=== PATIENT | male | born 1970 | race Caucasian/White ===

== ENCOUNTER → 2022-07-05 | Outpatient (CLI) | payer MEDICARE, OTHER ==
--- NOTE | 2022-07-06 08:36 | CT ---
EXAMINATION TYPE: CT foot RT wo con CT DLP: 203 mGycm, Automated exposure control for dose reduction was used. DATE OF EXAM: 07/05/2022 4:32 PM COMPARISON: None CLINICAL INDICATION:Male, 52 years old with history of M86.9 OSTEOMYELITIS, UNSPECIFIED; RT foot oste omyelitis TECHNIQUE: Axial images were obtained of the right foot . Additional coronal and sagittal reformatte d images and soft tissue and bone window were obtained for review. 3-D reconstruction was created on a separate workstation. Contrast used: None Oral contrast used: None FINDINGS: Soft tissue wound noted along the plantar surface near the fifth metatarsal head. No eviden ce for organizing fluid collection to suggest abscess. The visualized cortex of the adjacent osseous structures appears intact. The remainder of the osseous structures appear intact. There is no evidenc e of fracture, subluxation, or dislocation. No focal muscular atrophy or edema is identified. No rad iopaque foreign body identified. IMPRESSION: Plantar surface wound near the fifth metatarsal head without evidence for osseous erosion. If there r emains clinical concern consider MRI foot without contrast.
== END | disposition home or self-care (01) ==
LOC: RADCTMAIN 09:21
PROVIDERS: ATTEND Internal Medicine Infectious Disease
DX: S91.331A Puncture wound without foreign body, right foot, initial encounter (principal); M86.9 Osteomyelitis, unspecified

== ENCOUNTER 2022-08-04 09:05 | Day surgery (SDC) | payer MEDICARE, OTHER ==
[~2022-08-04 09:05] MED LIST: DEXAMETHASONE SOD PHOSPHATE 4 MG/ML 1 ML VIAL IV ONE; HYDROmorphone 0.5 MG/0.5 ML SYRINGE IVP PRN; LACTATED RINGERS 1,000 ML IV SCH; LIDOCAINE 1% (10MG/ML) FOR IV START INTRADERMA PRN; MIDAZOLAM 2 MG/2 ML VIAL IV PRN; ONDANSETRON 4 MG/2 ML VIAL IVP ONE
[2022-08-04 09:33] VITALS: TEMP 97
[2022-08-04] MEDS ORDERED: fentaNYL (PF) 50 MCG/ML 2 ML AMP ONE (10:24)
[2022-08-04] MEDS ORDERED: PROPOFOL 10 MG/ML 20 ML VIAL IV ONE (10:24)
[2022-08-04] MEDS ORDERED: KETOROLAC 30 MG/ML 1 ML VIAL ONE (10:24)
[2022-08-04] MEDS ORDERED: KETAMINE 10 MG/ML 20 ML VIAL ONE (10:24)
[2022-08-04] MEDS ORDERED: MIDAZOLAM 2 MG/2 ML VIAL ONE (10:24)
[2022-08-04] MEDS ORDERED: BUPIVACAINE (PF) 0.25% 30 ML VIAL SQ ONE (10:36)
--- NOTE | 2022-08-04 11:26 | P.OP ---
Date of Procedure: 08/04/22 Preoperative Diagnosis: Metatarsalgia right foot Postoperative Diagnosis: Same Procedure(s) Performed: Fifth metatarsal head resection right foot Anesthesia: SURYA Surgeon: Abe Dc Estimated Blood Loss (ml): 1 Pathology: other (Fifth metatarsal head right foot) Condition: stable Disposition: PACU Indications for Procedure: Patient has a history of chronic ulceration on the plantar side of the first metatarsal phalangeal joint. Patient had undergone IV antibiotic therapy as well as wound care therapy. The wound had healed however his physicians felt that there could be chronic osteomyelitis. CT scans were negative. X-rays did not show any bony erosion. However the patient complained of pain in the area because the bone seemed to protrude and cause pressure. The recommendation was for fifth metatarsal head resection. Operative Findings: No bony destructive process noted in the fifth metatarsal. There was inflammatory tissue in the fifth metatarsal phalangeal joint. Description of Procedure: The patient was brought into the operative room and placed on table in supine position. Timeout was taken to confirm correct patient identifiers, correct laterality of surgery, and correct procedure. When all staff in the room in agreement with the timeout, the patient was placed under IV sedation anesthesia. A well-padded tourniquet was placed on the right ankle and then 20 mL of 0.25% Marcaine was injected as a lateral forefoot block. Then the foot was prepped and draped usual manner. The foot was exsanguinated and the tourniquet inflated to 250 mmHg. Attention directed over the lateral aspect of the foot where a linear incision was made over the fifth metatarsal phalangeal joint between the long extensor tendon and the neurovascular structures. The incision was deepened down to the saphenous tissue careful to identify, avoid, and retract any neurovascular structures and cauterize any bleeding vessels. Blunt dissection was then carried down to the the joint capsule. Joint capsule was in cised lateral to the long extensor tendon and reflected from its osseous attachments on the fifth metatarsal head. Once fifth metatarsal head was mobilized a sagittal saw was was used to resect the head. A double bubble was done both plantar lateral to prevent any protrusion. The head was then removed and visually inspected. There is no grayish discoloration or erosive processes that would indicate osteomyelitis, however the bone will be sent to pathology for evaluation. There was inflammatory tissue in the synovium of the joint and that was all debrided and removed. Then the wound is thoroughly irrigated with antibiotic saline. The capsule was closed with 2-0 Vicryl. Subcu closure done with 3-0 Monocryl. And skin closure done with 3-0 nylon. An Arthrex jumpstart dressing was placed over the incision and then a dry sterile dressings applied to the right foot. The tourniquet was released and capillary refill return to all digits on the right foot.
[2022-08-04 11:41] VITALS: BP 113/72; PULSE 71; RESP 18
== END 2022-08-04 12:03 | disposition home or self-care (01) ==
LOC: OR 09:05
PROVIDERS: ATTEND Podiatrist
DX: M89.8X7 Other specified disorders of bone, ankle and foot (principal); Z87.2 Personal history of diseases of the skin and subcutaneous tissue; M86.9 Osteomyelitis, unspecified; I25.2 Old myocardial infarction; I11.0 Hypertensive heart disease with heart failure; I50.9 Heart failure, unspecified; I25.10 Atherosclerotic heart disease of native coronary artery without angina pectoris; E78.5 Hyperlipidemia, unspecified; J44.9 Chronic obstructive pulmonary disease, unspecified; F17.210 Nicotine dependence, cigarettes, uncomplicated; Z91.010 Allergy to peanuts; Z91.013 Allergy to seafood; Z91.018 Allergy to other foods; Z79.82 Long term (current) use of aspirin; Z79.51 Long term (current) use of inhaled steroids; Z79.899 Other long term (current) drug therapy; Z95.5 Presence of coronary angioplasty implant and graft; Z98.890 Other specified postprocedural states; F10.20 Alcohol dependence, uncomplicated; Z83.3 Family history of diabetes mellitus; Z82.49 Family history of ischemic heart disease and other diseases of the circulatory system
CPT/HCPCS: 28113; 88304; 88311; J2250; J1100; J0690; J2405; J3010; J1885; J2704

== ENCOUNTER 2023-02-26 09:51 | Day surgery (SDC) | payer MEDICARE, OTHER ==
[2023-02-23 08:42] VITALS: BMI 30.3
[~2023-02-26 09:51] MED LIST changes: +ALPRAZolam 0.25 MG TAB PO PRN; +ALPRAZolam 0.5 MG TAB PO PRN; +ASPIRIN 325 MG TAB PO STA; +ATORVASTATIN 80 MG TAB PO STA; -DEXAMETHASONE SOD PHOSPHATE 4 MG/ML 1 ML VIAL IV ONE; +HEPARIN SODIUM,PORCINE (1 ML) 2,500 UNIT in SODIUM CHLORIDE 0.9% 250 ML IRRIGATION PRN; +HEPARIN SODIUM,PORCINE 10,000 UNIT in SODIUM CHLORIDE 0.9% 1,000 ML IRRIGATION PRN; -HYDROmorphone 0.5 MG/0.5 ML SYRINGE IVP PRN; -LACTATED RINGERS 1,000 ML IV SCH; -LIDOCAINE 1% (10MG/ML) FOR IV START INTRADERMA PRN; -MIDAZOLAM 2 MG/2 ML VIAL IV PRN; +NITROGLYCERIN SL TABS 0.4 MG TAB SUBLINGUAL PRN; -ONDANSETRON 4 MG/2 ML VIAL IVP ONE; +SODIUM CHLORIDE 0.9% 1,000 ML in EMPTY BAG 1 BAG IV SCH
[2023-02-26] MEDS ORDERED: SODIUM CHLORIDE 0.9% 1,000 ML IV ONE (10:06)
[2023-02-26 10:24] LABS: Basophils % (A) 0 %; Eosinophils # (A) 0.2 k/uL (0-0.7); Eosinophils % (A) 2 %; HCT 46.8 % (39.0-53.0); HGB 16.2 gm/dL (13.0-17.5); Lymphocytes # (A) 1.6 k/uL (1.0-4.8); Lymphocytes % (A) 11 %; MCH 32.2 pg (25.0-35.0); MCHC 34.6 g/dL (31.0-37.0); MCV 93.1 fL (80.0-100.0); Mean Platelet Volume 7.9; Monocytes # (A) 0.4 k/uL (0-1.0); Monocytes % (A) 3 %; Neutrophils # (A) 12.2 k/uL (1.3-7.7); Neutrophils % (A) 84 %; Platelet Count 276 k/uL (150-450); RBC 5.03 m/uL (4.30-5.90); RDW 13.3 % (11.5-15.5); WBC 14.5 k/uL (3.8-10.6)
[2023-02-26 10:31] LABS: Potassium 4.3 mmol/L (3.5-5.1)
[2023-02-26 10:33] VITALS: RESP 16; TEMP 97.9
[2023-02-26 10:33] LABS: African American GFR (CKD) >90 (>60 ml/min/1.73 sqM); Anion Gap 9 mmol/L; Blood Urea Nitrogen 16 mg/dL (9-20); Calcium 9.3 mg/dL (8.4-10.2); Carbon Dioxide 24 mmol/L (22-30); Chloride 104 mmol/L (98-107); Glucose 105 mg/dL (74-99); Non-African American GFR(CKD) >90 (>60 ml/min/1.73 sqM); Sodium 137 mmol/L (137-145)
[2023-02-26] MEDS ORDERED: LIDOCAINE 1% INJ 10MG/ML (20 ML MDV) ONE (12:10)
[2023-02-26] MEDS ORDERED: VERAPAMIL 2.5 MG/ML 2 ML AMP ONE (12:11)
[2023-02-26] MEDS ORDERED: HEPARIN SODIUM 1,000 UN/ML (10ML VL) ONE (12:11)
[2023-02-26] MEDS ORDERED: MIDAZOLAM 2 MG/2 ML VIAL IVP ONE (12:45)
[2023-02-26] MEDS ORDERED: LIDOCAINE 1% INJ 10MG/ML (5 ML VIAL-PF) SQ ONE (12:49)
[2023-02-26] MEDS ORDERED: VERAPAMIL SYRINGE (5 MG/10 ML) INTRAARTER ONE (12:49)
[2023-02-26] MEDS ORDERED: HEPARIN SODIUM 1,000 UN/ML (10ML VL) IV ONE (12:52)
[2023-02-26] MEDS ORDERED: IOPAMIDOL-370 100ML BTL INJ ONE ×2 (13:06)
[2023-02-26] MEDS ORDERED: RX INFO: IV CONTRAST WAS GIVEN 1 EACH MISC MISCELLANE PRN (13:10)
[2023-02-26] MEDS ORDERED: SODIUM CHLORIDE 0.9% 1,000 ML IV SCH (13:15)
--- NOTE | 2023-02-26 13:17 | P.PCN ---
Date of Procedure: 02/26/23 Operative Findings: CARDIAC CATHETERIZATION PERFORMING PHYSICIAN: Eliu Cervantes MD, RPVI PROCEDURE PERFORMED: 1. Selective right and left coronary angiogram 2. Left heart catheterization 3. Ultrasound-guided access of the right radial artery INDICATION: Abnormal myocardial perfusion imaging stress test concerning for high risk features. The patient is known to have CAD was prior stenting of the LAD COMPLICATION: None APPROACH: Right radial artery LEVEL OF SEDATION: Moderate with a sedation length of 15 minutes PROCEDURE DESCRIPTION: After obtaining an informed consent, the patient was brought to cardiac photographic laboratory technician. Local anesthesia was performed using lidocaine subcutaneously. The right radial artery was cannulated using Seldinger technique, the guidewire passed easily, following that we advanced a 5-Libyan sheath dilator assembly, the wire and dilator were removed and sheath was flushed. Following that, 2 mg of verapamil along with 5000 unit heparin were given. Selective right and left coronary angiogram using a 6-Libyan JR4 and JL 3.5 catheters. Following that we did left heart catheterization using 6-Libyan pigtail catheter. The procedure was completed there was no complication. SELECTIVE CORONARY ANGIOGRAM: The right coronary artery: Large caliber vessel and a dominant vessel. The RCA has mild disease in the midportion Left main: Is angiographically normal but short left main The left circumflex: Large caliber vessel and nondominant vessel. The LCx gives rises into the first obtuse marginal branch which is a large caliber vessel appears to be normal and second obtuse marginal branch which is also a large caliber vessel was mild disease only The left anterior descending artery: Is a stented from the proximal all the way to the distal portion and the LAD appeared to be occluded with in-stent occlusion HEMODYNAMICS: The LVEDP was 20 mmHg was no significant gradient across aortic valve CONCLUSION: 1. Chronic total occlusion of the LAD which seems to be in-stent occlusion extends from the proximal all the way to the distal portion. 2. Mild disease involving the left main and LCx and RCA POSTPROCEDURE MANAGEMENT: Medical treatment
[2023-02-26 15:17] VITALS: BP 115/69; PULSE 79
== END 2023-02-26 16:28 | disposition home or self-care (01) ==
LOC: CATHCVL 09:51
PROVIDERS: ATTEND Internal Medicine Interventional Cardiology
DX: I25.10 Atherosclerotic heart disease of native coronary artery without angina pectoris (principal); I25.82 Chronic total occlusion of coronary artery; I10 Essential (primary) hypertension; E78.5 Hyperlipidemia, unspecified; Z95.5 Presence of coronary angioplasty implant and graft; F17.200 Nicotine dependence, unspecified, uncomplicated; Z79.82 Long term (current) use of aspirin; Z79.899 Other long term (current) drug therapy
CPT/HCPCS: 93458; 80048; 85025; C1769; C1894; J2250; J2001; J1644; Q9967

== ENCOUNTER 2023-02-27 15:49 | Emergency (ER) | payer MEDICARE, OTHER ==
[2023-02-27] MEDS ORDERED: NITROGLYCERIN SL TABS 0.4 MG TAB SUBLINGUAL STA ×3 (16:19)
[2023-02-27] MEDS ORDERED: ASPIRIN 81 MG PO STA (16:19)
--- NOTE | 2023-02-27 16:24 | ED ---
General Adult HPI - General Chief complaint: Chest Pain Stated complaint: Chest Tightness, Heart Cath yesterday Time Seen by Provider: 02/27/23 16:05 Source: patient, RN notes reviewed, old records reviewed (Review of heart catheterization from yesterday) Mode of arrival: ambulatory Limitations: no limitations - History of Present Illness Initial comments: Patient is a pleasant 52-year-old male presenting to the emergency department with concerns of chest discomfort. Onset of symptoms was prior to arrival. Patient has burning of his chest in the sternal region. Patient did have routine stress test that was abnormal recently followed by heart catheterization just yesterday. Patient states he had no symptoms until prior to arrival. No associated dyspnea, nausea, or diaphoresis. Discomfort is mild rated 3/10. - Related Data Home Medications Medication Instructions Recorded Confirmed Albuterol Sulfate [Ventolin HFA] 1 puff INHALATION RT-DAILY PRN 07/31/22 02/27/23 Aspirin [Adult Low Dose Aspirin EC] 81 mg PO DAILY 07/31/22 02/27/23 Gabapentin [Neurontin] 400 mg PO QID 07/31/22 02/27/23 Metoprolol Succinate (ER) [Toprol 25 mg PO DAILY 07/31/22 02/27/23 XL] Cholecalciferol [Vitamin D3 (25 50 mcg PO DAILY 02/23/23 02/27/23 Mcg = 1000 Iu)] Losartan-Hctz 50-12.5 mg [Hyzaar 1 tab PO DAILY 02/23/23 02/27/23 50-12.5] Allergies Allergy/AdvReac Type Severity Reaction Status Date / Time peanut Allergy Anaphylaxis Verified 02/27/23 17:22 shellfish derived [Shellfish] Allergy Unknown Verified 02/27/23 17:22 soy Allergy Unknown Verified 02/27/23 17:22 Review of Systems ROS Statement: Those systems with pertinent positive or pertinent negative responses have been documented in the HPI. ROS Other: All systems not noted in ROS Statement are negative. Constitutional: Denies: fever Eyes: Denies: eye pain ENT: Denies: ear pain Respiratory: Denies: cough, dyspnea Cardiovascular: Reports: as per HPI, chest pain Endocrine: Denies: fatigue Gastrointestinal: Denies: abdominal pain Genitourinary: Denies: dysuria Musculoskeletal: Denies: back pain Skin: Denies: rash Neurological: Denies: weakness Past Medical History Past Medical History: Coronary Artery Disease (CAD), Heart Failure, COPD, Hyperlipidemia, Hypertension, Myocardial Infarction (ME) Additional Past Medical History / Comment(s): mi x2 , osteomylitis tx had mcfp anbbx-RESOLVED Last Myocardial Infarction Date:: 2011 History of Any Multi-Drug Resistant Organisms: MRSA Date of last positivie culture/infection: 2021 MDRO Source:: RT FOOT Past Surgical History: AICD, Back Surgery, Heart Catheterization With Stent, Hernia Repair, Orthopedic Surgery, Pacemaker Additional Past Surgical History / Comment(s): rods in back , LT KNEE SX TEEN, lft inguinal henia with mesh, COLONOSCOPY, RT FOOT SX, AICD Past Anesthesia/Blood Transfusion Reactions: No Reported Reaction Additional Past Anesthesia/Blood Transfusion Reaction / Comment(s): no blood transfusion hx Date of Last Stent Placement:: 2015 Type of Cardiac Device: AICD Device Placement Date:: 2013 Past Psychological History: No Psychological Hx Reported Smoking Status: Current every day smoker - Past Family History Sister(s) Family Medical History: Cancer General Exam Limitations: no limitations General appearance: alert, in no apparent distress Head exam: Present: normocephalic Eye exam: Present: normal appearance Neck exam: Present: normal inspection Respiratory exam: Present: normal lung sounds bilaterally. Absent: chest wall tenderness Cardiovascular Exam: Present: regular rate, normal rhythm Expanded Peripheral pulses: 2+: Radial (R), Radial (L), Posterior Tibialis (R), Posterior Tibialis (L) GI/Abdominal exam: Present: soft. Absent: tenderness Extremities exam: Present: normal inspection. Absent: pedal edema, calf tenderness Neurological exam: Present: alert Psychiatric exam: Present: normal affect, normal mood Skin exam: Present: normal color Course Vital Signs 02/27/23 02/27/23 02/27/23 15:59 16:15 17:08 Temperature 98.6 F 97.8 F Pulse Rate 77 81 78 Pulse Rate [ 79 [place] ] Respiratory 16 18 17 Rate Blood Pressure 135/88 135/89 128/96 O2 Sat by Pulse 97 97 94 L Oximetry 02/27/23 18:25 Temperature 97.7 F Pulse Rate 70 Pulse Rate [ Anvilsmith ] Respiratory 18 Rate Blood Pressure 133/88 O2 Sat by Pulse 97 Oximetry EKG Findings - EKG Results: EKG: interpreted by ERMD (Septal Q waves.), sinus rhythm, normal axis, normal ST/T Medical Decision Making - Medical Decision Making Repeat EKG interpreted by myself shows sinus rhythm with rate of 73. [place] 149. QRS 90. QT 376. QTc 402. Right axis. Septal Q waves. No acute ST change. Was pt. sent in by a medical professional or institution (, [facility], [employer], urgent care, hospital, or fpc...) When possible be specific @ -No Did you speak to anyone other than the patient for history (EMS, parent, family, police, friend...)? What history was obtained from this source @ - is present and helps provide history Did you review nursing and triage notes (agree or disagree)? Why? @ -I reviewed and agree with nursing and triage notes Were old charts reviewed (outside hosp., previous admission, EMS record, old E KG, old radiological studies, urgent care reports/EKG's, fpc records)? Report findings @ -Heart catheterization yesterday reviewed Differential Diagnosis (chest pain, altered mental status, abdominal pain women, abdominal pain men, vaginal bleeding, weakness, fever, dyspnea, syncope, headache, dizziness, GI bleed, back pain, seizure, CVA, palpatations, mental health, musculoskeletal)? @ -Differential Chest Pain: Stable Angina, Unstable Angina, STEMI, NSTEMI Aortic Dissection, Pneumothorax, Musculoskeletal, Esophageal Spasm GERD, Cholecystitis, Pancreatitis, Zoster, this is not meant to be an all-inclusive list. EKG interpreted by me (3pts min.). @ -As above X-rays interpreted by me (1pt min.). @ -Chest x-ray shows no acute process CT interpreted by me (1pt min.). @ -Report reviewed U/S interpreted by me (1pt. min.). @ -None done What testing was considered but not performed or refused? (CT, X-rays, U/S, labs)? Why? @ -None What meds were considered but not given or refused? Why? @ -None Did you discuss the management of the patient with other professionals (professionals i.e. GELA Way, WORK T[employer] DISTRIBUTOR, lab, RT, psych nurse, social work professor, community relations manager, teacher, freedom of information officer, clinical case manager)? Give summary @ -Case was discussed with cardiology, Dr. Ronquillo who does recommend repeat EKG and troponin. He states if they are negative patient can be discharged. Was smoking cessation discussed for >3mins.? @ -No Was critical care preformed (if so, how long)? @ -No Were there social determinants of health that impacted care today? How? (Homelessness, low income, unemployed, alcoholism, drug addiction, transportation, low edu. Level, literacy, decrease access to med. care, senior care, rehab)? @ -No Was there de-escalation of care discussed even if they declined (Discuss DNR or withdrawal of care, Hospice)? DNR status @ -No What co-morbidities impacted this encounter? (DM, HTN, Smoking, COPD, CAD, Cancer, CVA, ARF, Chemo, Hep., AIDS, mental health diagnosis, sleep apnea, morb id obesity)? @ -None Was patient admitted / discharged? Hospital course, mention meds given and route, prescriptions, significant lab abnormalities, going to OR and other pertinent info. @ -Patient reevaluated and symptom-free. Computed tomography scan without concerning findings. Repeat EKG and troponin negative. Patient updated on resu lts and need for close follow-up. Patient is agreeable and states he does have appointment scheduled already. Undiagnosed new problem with uncertain prognosis? @ -No Drug Therapy requiring intensive monitoring for toxicity (Heparin, Nitro, In sulin, Cardizem)? @ -No Were any procedures done? @ -No Diagnosis/symptom? @ -Chest pain Acute, or Chronic, or Acute on Chronic? @ -Acute Uncomplicated (without systemic symptoms) or Complicated (systemic symptoms)? @ -default Side effects of treatment? @ -No Exacerbation, Progression, or Severe Exacerbation? @ -No Poses a threat to life or bodily function? How? (Chest pain, USA, ME, pneumonia, PE, COPD, DKA, ARF, appy, cholecystitis, CVA, Diverticulitis, Homicidal, Suicidal, threat to staff... and all critical care pts) @ -No - Lab Data Result diagrams: 02/27/23 16:34 02/27/23 16:34 Lab Results 02/27/23 02/27/23 02/27/23 Range/Units 16:34 16:34 16:34 WBC 8.4 (3.8-10.6) k/uL RBC 4.78 (4.30-5.90) m/uL Hgb 15.2 (13.0-17.5) gm/dL Hct 44.7 (39.0-53.0) % MCV 93.5 (80.0-100.0) fL MCH 31.9 (25.0-35.0) pg MCHC 34.1 (31.0-37.0) g/dL RDW 13.4 (11.5-15.5) % Plt Count 260 (150-450) k/uL MPV 8.2 Neutrophils % 54 % Lymphocytes % 34 % Monocytes % 7 % Eosinophils % 3 % Basophils % 0 % Neutrophils # 4.6 (1.3-7.7) k/uL Lymphocytes # 2.9 (1.0-4.8) k/uL Monocytes # 0.6 (0-1.0) k/uL Eosinophils # 0.3 (0-0.7) k/uL Basophils # 0.0 (0-0.2) k/uL PT 10.5 (10.0-12.5) sec INR 0.9 (<1.2) APTT 25.0 (22.0-30.0) sec D-Dimer 0.67 H (<0.60) mg/L FEU Sodium 140 (137-145) mmol/L Potassium 4.1 (3.5-5.1) mmol/L Chloride 110 H (98-107) mmol/L Carbon Dioxide 23 (22-30) mmol/L Anion Gap 7 mmol/L BUN 19 (9-20) mg/dL Creatinine 0.84 (0.66-1.25) mg/dL Est GFR (CKD-EPI)AfAm >90 (>60 ml/min/1.73 sqM) Est GFR (CKD-EPI)NonAf >90 (>60 ml/min/1.73 sqM) Glucose 84 (74-99) mg/dL Calcium 8.9 (8.4-10.2) mg/dL Magnesium 1.9 (1.6-2.3) mg/dL Total Bilirubin 0.4 (0.2-1.3) mg/dL AST 24 (17-59) U/L ALT 24 (4-49) U/L Alkaline Phosphatase 83 (38-126) U/L Troponin I (0.000-0.034) ng/mL Total Protein 6.1 L (6.3-8.2) g/dL Albumin 3.7 (3.5-5.0) g/dL Amylase 59 (30-110) U/L Lipase 192 (23-300) U/L Serum Alcohol <10 mg/dL 02/27/23 02/27/23 Range/Units 16:34 20:31 WBC (3.8-10.6) k/uL RBC (4.30-5.90) m/uL Hgb (13.0-17.5) gm/dL Hct (39.0-53.0) % MCV (80.0-100.0) fL MCH (25.0-35.0) pg MCHC (31.0-37.0) g/dL RDW (11.5-15.5) % Plt Count (150-450) k/uL MPV Neutrophils % % Lymphocytes % % Monocytes % % Eosinophils % % Basophils % % Neutrophils # (1.3-7.7) k/uL Lymphocytes # (1.0-4.8) k/uL Monocytes # (0-1.0) k/uL Eosinophils # (0-0.7) k/uL Basophils # (0-0.2) k/uL PT (10.0-12.5) sec INR (<1.2) APTT (22.0-30.0) sec D-Dimer (<0.60) mg/L FEU Sodium (137-145) mmol/L Potassium (3.5-5.1) mmol/L Chloride (98-107) mmol/L Carbon Dioxide (22-30) mmol/L Anion Gap mmol/L BUN (9-20) mg/dL Creatinine (0.66-1.25) mg/dL Est GFR (CKD-EPI)AfAm (>60 ml/min/1.73 sqM) Est GFR (CKD-EPI)NonAf (>60 ml/min/1.73 sqM) Glucose (74-99) mg/dL Calcium (8.4-10.2) mg/dL Magnesium (1.6-2.3) mg/dL Total Bilirubin (0.2-1.3) mg/dL AST (17-59) U/L ALT (4-49) U/L Alkaline Phosphatase (38-126) U/L Troponin I <0.012 <0.012 (0.000-0.034) ng/mL Total Protein (6.3-8.2) g/dL Albumin (3.5-5.0) g/dL Amylase (30-110) U/L Lipase (23-300) U/L Serum Alcohol mg/dL Disposition Clinical Impression: Chest pain Disposition: HOME SELF-CARE Condition: Stable Instructions (If sedation given, give patient instructions): Chest Pain (ED) Additional Instructions: Please do follow-up with her solution sales senior executive as scheduled. Please follow-up to primary care physician in the next one or 2 days for recheck. Return for increased pain, difficulty breathing, worsening or changing symptoms or any other concerns. Is patient prescribed a controlled substance at d/c from ED?: No Referrals: Jair Alanis MD [Primary Care Provider] - 1-2 days Time of Disposition: 21:57
--- NOTE | 2023-02-27 16:54 | XR ---
EXAMINATION TYPE: XR chest 2V DATE OF EXAM: 02/27/2023 4:38 PM CLINICAL INDICATION:Male, 52 years old with history of Chest Pain; COMPARISON: None TECHNIQUE: XR chest 2V Frontal and lateral views of the chest. FINDINGS: Lungs/Pleura: There is no evidence of pleural effusion, focal consolidation, or pneumothorax. Pulmonary vascularity: Unremarkable. Heart/mediastinum: Cardiomediastinal silhouette is unremarkable. Single-lead cardiac conduction devic e overlying the left hemithorax with lead projecting over the right ventricle. Musculoskeletal: No acute osseous pathology. IMPRESSION: No acute cardiopulmonary disease/process.
[2023-02-27 17:02] LABS: Basophils % (A) 0 %; Eosinophils # (A) 0.3 k/uL (0-0.7); Eosinophils % (A) 3 %; HCT 44.7 % (39.0-53.0); HGB 15.2 gm/dL (13.0-17.5); Lymphocytes # (A) 2.9 k/uL (1.0-4.8); Lymphocytes % (A) 34 %; MCH 31.9 pg (25.0-35.0); MCHC 34.1 g/dL (31.0-37.0); MCV 93.5 fL (80.0-100.0); Mean Platelet Volume 8.2; Monocytes # (A) 0.6 k/uL (0-1.0); Monocytes % (A) 7 %; Neutrophils # (A) 4.6 k/uL (1.3-7.7); Neutrophils % (A) 54 %; Platelet Count 260 k/uL (150-450); RBC 4.78 m/uL (4.30-5.90); RDW 13.4 % (11.5-15.5); WBC 8.4 k/uL (3.8-10.6)
[2023-02-27 17:11] LABS: ALT 24 U/L (4-49); AST 24 U/L (17-59); African American GFR (CKD) >90 (>60 ml/min/1.73 sqM); Albumin 3.7 g/dL (3.5-5.0); Alcohol <10 mg/dL; Alkaline Phosphatase 83 U/L (38-126); Amylase 59 U/L (30-110); Anion Gap 7 mmol/L; Blood Urea Nitrogen 19 mg/dL (9-20); Calcium 8.9 mg/dL (8.4-10.2); Carbon Dioxide 23 mmol/L (22-30); Chloride 110 mmol/L (98-107); Glucose 84 mg/dL (74-99); Lipase 192 U/L (23-300); Magnesium 1.9 mg/dL (1.6-2.3); Non-African American GFR(CKD) >90 (>60 ml/min/1.73 sqM); Potassium 4.1 mmol/L (3.5-5.1); Sodium 140 mmol/L (137-145); Total Bilirubin 0.4 mg/dL (0.2-1.3); Total Protein 6.1 g/dL (6.3-8.2)
[2023-02-27 17:13] LABS: INR 0.9 (<1.2); Prothrombin Time 10.5 sec (10.0-12.5)
[2023-02-27] MEDS ORDERED: FAMOTIDINE 20 MG/2 ML VIAL IV STA (18:09)
[2023-02-27] MEDS ORDERED: methylPREDNISolone SOD SUCCI 125 MG/2 ML VIAL IV STA (18:09)
[2023-02-27] MEDS ORDERED: diphenhydrAMINE 50 MG/ML 1 ML VIAL IVP STA (18:09)
[2023-02-27 18:33] VITALS: RESP 18
--- NOTE | 2023-02-27 19:23 | CT ---
EXAMINATION TYPE: CT angio chest CT DLP: 1443.5 mGycm, Automated exposure control for dose reduction was used. DATE OF EXAM: 02/27/2023 7:10 PM COMPARISON: Chest radiograph same day CLINICAL INDICATION:Male, 52 years old with history of cp; C/O CP, hx 2 [place], had heart cath yesterday with blockage. c/o pain to chest radiating to neck. TECHNIQUE/CONTRAST: CTA scan of the thorax is performed with IV Contrast, patient injected with 100 ml mL of Isovue 370, MIP images are created and reviewed these are created on a separate workstation.. FINDINGS: Lungs/Pleura: No evidence of focal consolidation, pleural effusion or pneumothorax. Airway: Large airways are patent. Heart: Heart is within normal limits for size. Suspected stent grafts of the left anterior descending coronary artery. Vasculature: No evidence of aortic aneurysm. 2 vessel aortic arch. No evidence for vascular occlusion . Mediastinum: No gross evidence of adenopathy. Musculoskeletal: No acute osseous abnormalities Soft Tissues: Left chest wall cardiac conduction device with leads remain in the right ventricle. Lower neck: No significant findings. No acute process involving the left neck. Upper Abdomen: Atrophic left kidney. IMPRESSION: 1. No evidence for acute thoracic process.. 2. Postsurgical changes to the coronary arteries with suspected left anterior descending stent grafts . Evaluation limited due to motion and phasic contrast. 3. Atrophic left kidney.
[2023-02-27 22:26] VITALS: BP 134/91; PULSE 80; TEMP 98
== END 2023-02-27 22:07 | disposition home or self-care (01) ==
LOC: EC 15:49
DX: R07.89 Other chest pain (principal); N26.1 Atrophy of kidney (terminal); I25.10 Atherosclerotic heart disease of native coronary artery without angina pectoris; I11.0 Hypertensive heart disease with heart failure; I50.9 Heart failure, unspecified; J44.9 Chronic obstructive pulmonary disease, unspecified; I25.2 Old myocardial infarction; F17.200 Nicotine dependence, unspecified, uncomplicated; Z79.82 Long term (current) use of aspirin; Z79.899 Other long term (current) drug therapy; Z91.010 Allergy to peanuts; Z91.013 Allergy to seafood; Z91.018 Allergy to other foods
CPT/HCPCS: 36415; 93005; 85379; 80053; 82150; 83690; 83735; 84484; 85025; 85610; 85730; 71046; 71275; 99285; 96374; 96375 ×2; G0480; J1200; J2930; J3490; Q9967; 80320

== ENCOUNTER → 2024-04-25 | Outpatient (CLI) | payer MEDICARE ==
--- NOTE | 2024-04-25 13:26 | CT ---
EXAMINATION TYPE: CT hip LT wo con CT DLP: 644.2 mGycm, Automated exposure control for dose reduction was used. 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 Additional cor onal and sagittal reformatted images and soft tissue and bone window were obtained for review. 3-D re construction was created on a separate workstation. FINDINGS: There is no evidence of fracture, subluxation, or dislocation. There is serpiginous sclero tic appearance of the femoral head with approximately 1 mm of subchondral collapse (series 6, image 3 6). No significant soft tissue swelling or joint effusion is identified. No focal muscular atrophy or edema is identified. No radiopaque foreign body identified. IMPRESSION: Left femoral head avascular necrosis with 1 mm subchondral collapse. [facility], , 04/25/2024 1:24 PM
== END | disposition home or self-care (01) ==
LOC: RADCTMAIN 11:52
PROVIDERS: ATTEND Orthopaedic Surgery
DX: M87.052 Idiopathic aseptic necrosis of left femur (principal); M87.9 Osteonecrosis, unspecified

== ENCOUNTER → 2024-05-23 | Outpatient (CLI) | payer MEDICARE ==
[2024-05-23 08:16] LABS: Partial Thromboplastin Time 24.5 sec (22.0-30.0); Prothrombin Time 11.2 sec (10.0-12.5)
[2024-05-23 11:02] LABS: ALT 35 U/L (10-49); AST 24 U/L (14-35); Albumin 4.3 g/dL (3.8-4.9); Albumin/Globulin Ratio 1.79 Ratio (1.60-3.17); Alkaline Phosphatase 98 U/L (41-126); Blood Urea Nitrogen 18.4 mg/dL (9.0-27.0); Calcium 9.3 mg/dL (8.7-10.3); Carbon Dioxide 28.3 mmol/L (21.6-31.8); Chloride 105 mmol/L (96-109); Globulin 2.4 g/dL (1.6-3.3); Glucose 97 mg/dL (70-110); Potassium 4.7 mmol/L (3.5-5.5); Sodium 143 mmol/L (135-145); Total Bilirubin 0.5 mg/dL (0.3-1.2); Total Protein 6.7 g/dL (6.2-8.2)
[2024-05-23 13:43] LABS: HCT 47.3 % (39.6-50.0); MCH 31.6 pg (27.0-32.0); MCHC 33.8 g/dL (32.0-37.0); MCV 93.3 FL (80.0-97.0); Mean Platelet Volume 10.8 FL (9.5-12.2); NRBC Per 100 WBC 0 X 10*3/uL (0.00-0.01); Platelet Count 213 X 10*3/uL (140-440); RBC 5.07 X 10*6/uL (4.40-5.60); RDW 13.1 % (11.5-14.5); WBC 6.34 X 10*3/uL (4.50-10.00)
== END | disposition home or self-care (01) ==
LOC: LABPAT 07:10
PROVIDERS: ATTEND Orthopaedic Surgery
DX: Z01.812 Encounter for preprocedural laboratory examination (principal); M16.12 Unilateral primary osteoarthritis, left hip; Z22.322 Carrier or suspected carrier of Methicillin resistant Staphylococcus aureus
CPT/HCPCS: 80053; 85027; 85610; 85730; 86850; 86900; 86901; 87070; 93005

== ENCOUNTER → 2024-05-23 | Outpatient (CLI) | payer MEDICARE ==
[2024-05-23 11:01] LABS: ALT 35 U/L (10-49); AST 25 U/L (14-35); Chol/HDL Ratio 4.07 Ratio; LDL Cholesterol,Calculated 65.5 mg/dL (0.0-131.0)
== END | disposition home or self-care (01) ==
LOC: LABWHC1 07:15
PROVIDERS: ATTEND Internal Medicine Interventional Cardiology
DX: E78.2 Mixed hyperlipidemia (principal)
CPT/HCPCS: 36415; 80061; 84450; 84460

== ENCOUNTER 2024-06-03 05:34 | Day surgery (SDC) | payer MEDICARE ==
[~2024-06-03 05:34] MED LIST changes: -ALPRAZolam 0.25 MG TAB PO PRN; -ALPRAZolam 0.5 MG TAB PO PRN; -ASPIRIN 325 MG TAB PO STA; -ATORVASTATIN 80 MG TAB PO STA; -HEPARIN SODIUM,PORCINE (1 ML) 2,500 UNIT in SODIUM CHLORIDE 0.9% 250 ML IRRIGATION PRN; -HEPARIN SODIUM,PORCINE 10,000 UNIT in SODIUM CHLORIDE 0.9% 1,000 ML IRRIGATION PRN; -NITROGLYCERIN SL TABS 0.4 MG TAB SUBLINGUAL PRN; -SODIUM CHLORIDE 0.9% 1,000 ML in EMPTY BAG 1 BAG IV SCH; +TRANEXAMIC 1,000 MG/100ML-NACL 1,000 MG in SALINE 1 100ML.BAG IVPB PRN
[2024-06-03] MEDS ORDERED: LIDOCAINE 1% (10MG/ML) FOR IV START INTRADERMA PRN (05:46)
[2024-06-03] MEDS: IV FLUID CONTINUATION 1,000 ML IV ONE (05:50)
[2024-06-03] MEDS: ONDANSETRON 4 MG/2 ML VIAL IVP ONE (06:25)
[2024-06-03] MEDS: GABAPENTIN 300 MG CAP PO PRN (06:25)
[2024-06-03] MEDS: ACETAMINOPHEN TAB 500 MG TAB PO PRN (06:25)
[2024-06-03] MEDS: MELOXICAM 7.5 MG TAB PO PRN (06:25)
[2024-06-03] MEDS: DEXAMETHASONE SOD PHOSPHATE 4 MG/ML 1 ML VIAL IVP STA (06:30)
[2024-06-03] MEDS: MIDAZOLAM 2 MG/2 ML VIAL IV ONE (06:44)
[2024-06-03] MEDS: fentaNYL (PF) 50 MCG/ML 2 ML AMP IVP PRN (06:44)
[2024-06-03] MEDS ORDERED: PROPOFOL 10 MG/ML 20 ML VIAL IV ONE (07:00)
[2024-06-03] MEDS ORDERED: ePHEDrine 50 MG/ML 1 ML VIAL ONE (07:00)
[2024-06-03] MEDS ORDERED: MIDAZOLAM 2 MG/2 ML VIAL ONE (07:00)
[2024-06-03] MEDS ORDERED: ROPIVACAINE 5 MG/ML 30 ML VIAL ONE (07:00)
[2024-06-03] MEDS ORDERED: HYDROmorphone 0.5 MG/0.5 ML SYRINGE IVP PRN ×3 (07:00→08:38)
[2024-06-03] MEDS ORDERED: DEXAMETHASONE SOD PHOSPHATE 4 MG/ML 1 ML VIAL ONE (07:00)
[2024-06-03] MEDS ORDERED: TRANEXAMIC 1,000 MG/100ML-NACL PREMIX BAG ONE (07:00)
[2024-06-03] MEDS ORDERED: LIDOCAINE 1% INJ 10MG/ML (20 ML MDV) ONE (07:00)
[2024-06-03] MEDS ORDERED: fentaNYL (PF) 50 MCG/ML 2 ML AMP ONE (07:00)
[2024-06-03] MEDS: ceFAZolin 1,000 MG in SODIUM CHLORIDE 0.9% 1,000 ML IRRIGATION ONE (07:00)
[2024-06-03] MEDS: ROPIVACAINE 5 MG/ML 30 ML VIAL MISCELLANE ONE ×2 (07:01→08:05)
--- NOTE | 2024-06-03 08:11 | P.OP ---
Date of Procedure: 06/03/24 Preoperative Diagnosis: Avascular necrosis of the left hip with femoral head collapse Postoperative Diagnosis: Avascular necrosis of the left hip with femoral head collapse Procedure(s) Performed: Left total hip arthroplasty with a direct anterior approach Implants: [employer]hew Polarstem standard size 3 with a collar [employer]hew R3, 3 hole hemispherical acetabular shell, 54 mm [employer]hew Reflection 6.5 mm cancellus screws, 20 mm 2 [employer] R3, XLPE 20 acetabular liner [employer]hew Oxinium femoral head 36 mm, -3 All components were press-fit. The articulation is Oxinium on polyethylene. Anesthesia: spinal Surgeon: Rafa Soto Utility Person #1: Noreen Vigil Estimated Blood Loss (ml): 500 Pathology: none sent Condition: stable Disposition: PACU Indications for Procedure: After failure of conservative treatment we discussed the surgical and nonsurgical treatment options at length. Patient wishes to proceed with a total hip arthroplasty with a direct anterior approach. Complications specific to this procedure were discussed at length, including but not limited to infection, leg length discrepancy, dislocation, nerve injury, and fracture. Covid-19 was also discussed at length with the patient, and they are aware of the current policies and procedures. The patient was given the option of delaying surgery, but they elect to proceed knowing these risks. Patient is aware of all these complications and informed consent was obtained Operative Findings: The operative findings are consistent with avascular necrosis of the left hip with collapse of the femoral head Description of Procedure: The patient was seen and evaluated in the preoperative area and the consent was reviewed. The operative site was marked with a skin marker. The patient verified the procedure and operative site. A TIMO block was placed by anesthesia in the preoperative area. The patient was then brought to the operating room and given preoperative antibiotics intravenously. 1 g of Tranexamic acid was also given intravenously. A spinal anesthetic was administered by the anesthesia department. The patient was then placed on the [place] table with the bony prominences well-padded. The hip area was then prepped with a ChloraPrep solution and draped in the usual sterile fashion. A universal timeout was then performed, which confirmed the patient's name, surgical site, ALLERGIES, and procedure being performed on the consent. Next the incision site was located at 1 cm distal and 4 cm lateral to the anterior superior iliac spine. The skin and subcutaneous tissues were sharply incised. Incision was carefully dissected down to the fascia overlying the tensor fascia luis manuel muscle. This fascia was then incised in line with the muscle fibers. Care was taken to stay laterally in order to avoid injuring the lateral femoral cutaneous nerve. Next, using blunt finger dissection, the tensor fascia luis manuel muscle was dissected off its investing fascia. The muscle was then carefully retracted laterally with a cobra retractor over the lateral neck of the femur. Next, the circumflex vessels were identified and cauterized using the Aquamantis device. The anterior hip capsule was then exposed. The capsule was then opened and an inverted T fashion. The retractors were then placed intracapsularly. The retractors were maintained intracapsular throughout the procedure. The proximal femur was then visualized. Fluoroscopic x-rays were then taken in order to evaluate the preoperative leg lengths. A small amount of traction was placed on the leg. The femoral neck was then osteotomized at the appropriate level above the lesser trochanter. A small wedge of bone was then removed from the remaining femoral head. Next, using a corkscrew the femoral head was removed from the acetabulum. On gross visual inspection, the femoral head had significant changes secondary to avascular necrosis with collapse of the femoral head. The femoral head was then measured. Attention was then turned to the acetabulum. The acetabulum was exposed and any remaining labrum was excised. Sequential reaming of the acetabulum was performed using fluoroscopic guidance until there was a good bed of bleeding cancellus bone. When the appropriate size was reached, a trial was then placed. The position and fit of the trial was checked with fluoroscopy. The trial was then removed. Then, using fluoroscopic guidance, the final implant was impacted at 20 of anteversion and 40 of abduction, and fully seated in the acetabulum. 2 screws were then placed in the acetabulum. Again fluoroscopy was used to check position of the screws. Next, the liner was then impacted, with a 20 elevated liner located in the anterior superior quadrant. Component locking was confirmed. Attention was then directed to the femur. With the aid of the [place] table, the femur was externally rotated to approximately 130, extended, and adducted under the opposite leg. A side hook was then placed under the proximal femur, and the side hook elevator was used to elevate the proximal femur while releasing the capsule. Retractors were then placed. A capsular release was performed, as well as a release of the conjoined tendon, which afforded excellent visualization of the proximal femur. Next, a box osteotome was used to lateralize the proximal femur. A brim ironer hand was then used to locate the femoral canal. Sequential broaching was then performed with appropriate size which afforded excellent fixation in the proximal femur. A trial was then pl aced with appropriate head and neck, and the hip was gently reduced with the aid of the [place] table. Fluoroscopy was then used to check position of the components, as well as to evaluate the leg lengths and offset. The leg lengths and offset were measured as closely as possible to ensure stability of the hip. The hip was then gently dislocated and the trials were then removed. Final implants were then impacted and the hip was again reduced. Final fluoroscopic x-rays confirmed that the components were in anatomic position. The leg lengths and offset were measured and were found to coincide with the trial measurements. The hip was also taken through range of motion, and found to be stable. The hip was then copiously irrigated with antibiotic solution with pulsatile lavage. The hip was then irrigated with Irrisept solution. The soft tissues were then injected with a ropivacaine solution. A second dose of 1 g of Tranexamic acid was also given intravenously. The fascia was then closed with 2-0 strata fix suture. The subcutaneous tissue was closed with 3-0 Vicryl. The subcuticular tissue was closed with 3-0 moncryl suture. The skin was then closed with Exofin skin glue. After the glue and dried, and Optifoam silver impregnated dressing was applied. The patient was then transferred to the recovery room in stable condition. The diploma dental assistant GELA Garcia was required due to the complexity of surgery, and the need for skilled assistant clinical nurse manager for positioning, draping, exposure, retraction, and closure of the wound.
--- NOTE | 2024-06-03 08:33 | FL ---
EXAMINATION TYPE: FL guidance operating room, XR Hip Limited LT DATE OF EXAM: 06/03/2024 FLUOROSCOPY Left Hip-Ant 50sec fluoro time 3.[address] Soto 3 images are submitted. [facility], , 06/03/2024 8:30 AM
[2024-06-03] MEDS ORDERED: NALOXONE 0.4 MG/ML 1 ML VIAL IV PRN (08:38)
[2024-06-03] MEDS ORDERED: MAGNESIUM HYDROXIDE 2,400 MG/30 ML CUP PO PRN (08:38)
[2024-06-03] MEDS ORDERED: ONDANSETRON 4 MG/2 ML VIAL IVP PRN (08:38)
[2024-06-03] MEDS ORDERED: HYDROmorphone 1 MG/ML 1 ML SYRINGE IVP PRN (08:38)
[2024-06-03] MEDS ORDERED: HYDROcodone/APAP 7.5-325MG 1 EACH TAB PO PRN (08:41)
--- NOTE | 2024-06-03 09:00 | P.ANPRN ---
Procedure Note - Anesthesia - Nerve Block Performed Left Den Single Time Out Performed: Yes (0643) Date of Procedure: 06/03/24 Procedure Start Time: 06:44 Procedure Stop Time: 06:48 Location of Patient: PreOp Indication: Acute Post-Operative Pain, Requested by Surgeon Specifically requested for management of pain by DrBenton: Rafa Soto Sedation Type: Sedate with meaningful contact maintained Preparation: Sterile Prep Position: Supine Catheter: None Needle Types: Pajunk Needle Gauge: 21 Ultrasound used to visualize needle placement: Yes Ultrasound used to observe medication spread: Yes Injectate: 0.5% Ropivacaine (see comment for volume) (30cc+decadron 4mg) Blood Aspirated: No Pain Paresthesia on Injection Noted: No Resistance on Injection: Normal Image Stored and Saved: Yes Events: Uneventful and Well Tolerated
--- NOTE | 2024-06-03 09:26 | XR ---
EXAMINATION TYPE: XR Hip Limited AP LT DATE OF EXAM: 06/03/2024 9:02 AM COMPARISON: None CLINICAL INDICATION: Male, 54 years old with history of Status post hip surgery, assess surgical dirk nmeduard; PHH, pain TECHNIQUE: XR Hip Limited LT; Frontal view FINDINGS: Image shows placement of left opercular plasty. Both acetabular cup and femoral stem components of th e prosthesis are well seated without periprosthetic fracture. Alignment grossly anatomic. Soft tissue air related to recent operation. IMPRESSION: Uncomplicated postoperative appearance left total hip arthroplasty. [facility], Workstation: [facility], 06/03/2024 9:23 AM
[2024-06-03] MEDS: LACTATED RINGERS 1,000 ML IV SCH (12:06)
[2024-06-03] MEDS: HYDROcodone/APAP 7.5-325MG 1 EACH TAB PO PRN (12:12)
[2024-06-03] MEDS: SODIUM CHLORIDE 0.9% 1,000 ML IV SCH (12:15)
[2024-06-03] MEDS ORDERED: ZINC SULFATE 220 MG CAP PO PRN (14:35)
[2024-06-03] MEDS ORDERED: IPRATROPIUM-ALBUTEROL 3 ML NEB INHALATION PRN (16:26)
--- NOTE | 2024-06-03 16:38 | P.CONS ---
History of Present Illness - Reason for Consult Consult date: 06/03/24 Medical Management Requesting physician: Rafa Soto - History of Present Illness History of Presenting Illness: Patient is a pleasant 54-year-old male with a past medical history of CAD status post stenting and AICD placement, systolic heart failure, hypertension, hyperlipidemia, COPD and avascular necrosis. Patient currently admitted under orthopedic surgery team status post left total hip arthroplasty. Surgical procedure was completed by Dr. Soto secondary to avascular necrosis of left hip with femoral head collapse. We were consulted for medical management throughout hospitalization. Patient seen and fully evaluated in room 471. He reports currently experiencing mild postoperative pain, but states numbness is not quite weird off yet since his surgery to his left thigh and groin region. Patient is tolerating oral intake and denies having any postoperative nausea or vomiting. He has not yet urinated since completion of surgical procedure, but just arrived to room 471 just a short while ago. He denies having any headache, lightheadedness, dizziness, chest pain, palpitations, shortness of breath, or any other complaints at this time. Review of systems: Pertinent positives and negatives as discussed in HPI, a complete review of systems was performed and all other systems are negative. Physical exam: Vital signs reviewed and stable. General: Nontoxic, no distress and appears stated age. Derm: Skin warm and dry, normal coloration for ethnicity. Head: Atraumatic, normocephalic and symmetric. Eyes: EOM's intact, no lid lag, and anicteric sclera Mouth: no lip lesions, mucus membranes moist Cardiovascular: regular rate and rhythm with normal S1S2, no murmur, positive posterior tibial pulses bilaterally, and cap refill < 2 seconds. Lungs: Respirations even, regular, and unlabored on room air. Lungs CTA bilaterally, no rhonchi, no rales, no wheezing, and no accessory muscle usage. Abdominal: soft, nontender to palpation, no guarding, no appreciable organomegaly Ext: ROM intact. No gross muscle atrophy, no edema, no contractures Neuro: Speech clear, face symmetrical and CN II-XII grossly intact with no noted focal neuro deficits Psych: Alert and oriented to person, place, time, and situation. Appropriate and pleasant affect. Assessment and Plan of Care: Avascular necrosis of left hip with femoral head collapse Status post left total hip arthroplasty -Management per primary admitting orthopedic surgery team including DVT prophylaxis, pain management, wound/dressing management, weightbearing, and PT/OT. -Patient currently on DVT prophylaxis with aspirin 325 mg twice daily along with RJ johnston and SCDs.. -Continue gabapentin 400 mg 3 times daily. History of CAD status post stenting Chronic Systolic heart failure, not in acute exacerbation History of AICD placement Hypertension Hyperlipidemia -Order placed for telemetry monitoring throughout postoperative period. -Continue daily medication regimen with atorvastatin 80 mg daily, losartanhydrochlorothiazide 50-12.5 mg daily, and metoprolol succinate 25 mg daily. COPD, not in acute exacerbation -Continue Trelegy Ellipta 1 puff daily. -In substitute of home Ventolin inhaler, patient placed on DuoNebs 3 times daily and as needed for wheezing/shortness of breath. -Encourage use of incentive spirometry 10-15 times hourly while awake. Data reviewed: -Vital signs reviewed. Blood pressure 120/73, heart rate 86, respiratory rate 16, temp 98.0 F, and SpO2 of 95% on room air. -Reviewed preoperative labs completed 05/23/2024. CBC showing WBC count of 6.34, hemoglobin of 16.0, platelet count of 213. BMP was unremarkable with sodium 143, potassium 4.7, chloride 105, bicarb 28.3, anion gap of 9.70, BUN 18.4, creatinine of 1.0, and GFR greater than 90. -Reviewed operative report, estimated blood loss was 500 cc. Thank you for allowing us to participate in the care of this pleasant patient. Do not hesitate to contact us with questions. Someone can be reached from the [facility] hospitalist group all hours of the day at [phone] or via [employer]. Patient was seen independently by Nurse Practitioner. This document was prepared using [employer] dictation software. Please allow for errors in director of training while rare they do occur. Lior Ruelas NP rendered care for this patient independently, reviewed the findings and plan as documented in the note above and agree with plan. I did not physically speak with or examine the patient on this date. 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 Last Myocardial Infarction Date:: 2011 History of Any Multi-Drug Resistant Organisms: MRSA Year Discovered:: 2021 MDRO Source:: RT FOOT Past Surgical History: AICD, Back Surgery, Heart Catheterization With Stent, Hernia Repair, Orthopedic Surgery, Pacemaker Additional Past Surgical History / Comment(s): rods in back , LT KNEE SX TEEN, lft inguinal henia with mesh, COLONOSCOPY, RT FOOT SX, AICD Past Anesthesia/Blood Transfusion Reactions: No Reported Reaction Additional Past Anesthesia/Blood Transfusion Reaction / Comm: no blood transfusion hx Date of Last Stent Placement:: 2015 Type of Cardiac Device: AICD Device Placement Date:: 2013 Past Psychological History: No Psychological Hx Reported Smoking Status: Former smoker Past Alcohol Use History: Occasional Additional Past Alcohol Use History / Comment(s): Quit April 2024 Past Drug Use History: None Reported - Past Family History Sister(s) Family Medical History: Cancer Medications and Allergies Home Medications Medication Instructions Recorded Confirmed Type Albuterol Sulfate [Ventolin HFA] 1 - 2 puff INHALATION Q6H PRN 07/31/22 05/27/24 History Aspirin [Adult Low Dose Aspirin EC] 81 mg PO DAILY 07/31/22 05/27/24 History Gabapentin [Neurontin] 400 mg PO TID 07/31/22 05/27/24 History Metoprolol Succinate (ER) [Toprol 25 mg PO DAILY 07/31/22 05/27/24 History XL] Losartan-Hctz 50-12.5 mg [Hyzaar 1 tab PO DAILY 02/23/23 05/27/24 History 50-12.5] Amoxicillin/Potassium Clav 1 tab PO BID 05/27/24 05/27/24 History [Amox-Clav 875-125 mg Tablet] Ascorbic Acid [Vitamin C] 1,000 mg PO DAILY 05/27/24 05/27/24 History Atorvastatin [Lipitor] 80 mg PO DAILY 05/27/24 05/27/24 History Fluticasone/Umeclidin/Vilanter 1 inhalation INHALATION DAILY 05/27/24 05/27/24 History [Trelegy Ellipta 100-62.5-25] Ubidecarenone [Co Q-10] 400 mg PO DAILY 05/27/24 05/27/24 History Zinc Gluconate [Zinc] 200 mg PO DAILY PRN 05/27/24 05/27/24 History Aspirin 325 mg PO BID #60 tab 06/03/24 Rx HYDROcodone/APAP 7.5-325MG [[place] 1 - 2 tab PO Q6H PRN #32 tab 06/03/24 Rx 7.5-325] Sennosides [Senokot] 2 tab PO DAILY PRN #60 tablet 06/03/24 Rx Allergies Allergy/AdvReac Type Severity Reaction Status Date / Time peanut Allergy Anaphylaxis Verified 06/03/24 05:52 shellfish derived [Shellfish] Allergy Unknown Verified 06/03/24 05:52 soy Allergy Unknown Verified 06/03/24 05:52 Physical Exam Vitals: Vital Signs Temp Pulse Resp BP Pulse Ox 06/03/24 12:06 98 F 86 16 120/73 95 06/03/24 12:00 86 16 06/03/24 11:00 76 16 106/63 97 06/03/24 10:30 77 16 110/83 97 06/03/24 10:00 81 16 109/63 97 06/03/24 09:30 78 16 102/58 97 06/03/24 09:15 84 16 95/55 97 06/03/24 09:00 79 16 102/57 95 06/03/24 08:45 86 16 108/64 95 06/03/24 08:32 97.2 F L 97 16 93/55 95 06/03/24 06:56 72 16 107/68 97 06/03/24 05:59 97.8 F 81 16 126/70 97 Intake and Output 06/02/24 06/03/24 06/03/24 22:59 06:59 14:59 Intake Total 551 Output Total 500 Balance 51 Intake: IV 551 Output: Estimated Blood Loss 500 Other: Voiding Method Urinal Weight 106.1 kg 106.1 kg
[2024-06-03] MEDS: GABAPENTIN 400 MG CAP PO SCH (16:44)
[2024-06-03] MEDS: GABAPENTIN 400 MG CAP PO STA (18:00)
[2024-06-03] MEDS: ASPIRIN 325 MG TAB PO SCH (20:51)
[2024-06-03] MEDS: SYMBICORT 160-4.5 MCG INHALER INHALATION SCH (21:01)
[2024-06-03] MEDS: IPRATROPIUM-ALBUTEROL 3 ML NEB INHALATION SCH (21:01)
[2024-06-03] MEDS: SENNOSIDES-DOCUSATE SODIUM 1 EACH TAB PO SCH (21:54)
[2024-06-04 01:28] VITALS: RESP 15
[2024-06-04 07:52] VITALS: BP 137/79; PULSE 89; TEMP 98
[2024-06-04 08:42] LABS: Basophils # (A) 0.04 X 10*3/uL (0.00-0.10); Basophils % (A) 0.2 %; Eosinophils # (A) 0.01 X 10*3/uL (0.04-0.35); Eosinophils % (A) 0 %; HCT 35.3 % (39.6-50.0); HGB 11.9 g/dL (13.0-17.0); Lymphocytes # (A) 1.28 X 10*3/uL (0.90-5.00); Lymphocytes % (A) 5.9 %; MCH 31.2 pg (27.0-32.0); MCHC 33.7 g/dL (32.0-37.0); MCV 92.4 FL (80.0-97.0); Mean Platelet Volume 10.6 FL (9.5-12.2); Monocytes # (A) 1.22 X 10*3/uL (0.20-1.00); Monocytes % (A) 5.6 %; NRBC Per 100 WBC 0 X 10*3/uL (0.00-0.01); Neutrophils # (A) 19.11 X 10*3/uL (1.80-7.70); Neutrophils % (A) 87.3 %; Platelet Count 287 X 10*3/uL (140-440); RBC 3.82 X 10*6/uL (4.40-5.60); RDW 12.9 % (11.5-14.5); WBC 21.87 X 10*3/uL (4.50-10.00)
[2024-06-04 08:53] LABS: Blood Urea Nitrogen 22.2 mg/dL (9.0-27.0); Glucose 148 mg/dL (70-110); Magnesium 1.7 mg/dL (1.5-2.4)
[2024-06-04 08:54] LABS: Calcium 8.9 mg/dL (8.7-10.3); Carbon Dioxide 24.2 mmol/L (21.6-31.8); Chloride 105 mmol/L (96-109); Potassium 4.8 mmol/L (3.5-5.5); Sodium 140 mmol/L (135-145)
[2024-06-04] MEDS: TIOTROPIUM 2.5 MCG INHALER INHALATION SCH (09:10)
[2024-06-04] MEDS: GABAPENTIN 400 MG CAP PO SCH (09:33)
[2024-06-04] MEDS: METOPROLOL SUCCINATE (ER) 25 MG TAB.ER.24H PO SCH (09:33)
[2024-06-04] MEDS: LOSARTAN-HCTZ 50-12.5 MG 1 EACH TAB PO SCH (09:33)
[2024-06-04] MEDS: ATORVASTATIN 80 MG TAB PO SCH (09:33)
--- NOTE | 2024-06-04 10:32 | P.DS ---
Providers Expected date of discharge: 06/04/24 Attending physician: Rafa Soto Consults: 06/03/24 08:38 Consult Physician Routine Consulting Provider: Chuy Murphy Consult Reason/Comments: medical management Do you want consulting provider notified?: Yes Primary care physician: Stated None - Discharge Diagnosis(es) (1) S/P total hip arthroplasty Current Visit: Yes Status: Acute (2) Avascular necrosis of bone of left hip Current Visit: Yes Status: Acute Hospital Course: This is a 54-year-old male with known history of avascular necrosis of the left hip with femoral head collapse. The patient presented for evaluation as an outp atient. After discussion and consideration patient elects to proceed with total hip arthroplasty. The patient is seen preoperatively by Dr. Soto and medically cleared for surgery by their primary care physician. Patient is admitted to [facility] on 06/03/2024 for total hip arthroplasty. The procedure is performed without complication or sequelae. The patient is doing well postoperatively. Labs and vital signs are stable on day of discharge. On day of discharge patient's hip incision is healing well. There is minimal erythema. There is no drainage noted at this time. There is minimal soft tissue swelling to the hip and thigh. Patient has full foot and ankle motion without difficulty or pain. Calf is soft and nontender to palpation. Neurovascular status to the left lower extremity is intact. Patient is discharged home in good condition. Please see med rec for accurate list of home medications. Plan - Discharge Summary Discharge Rx Participant: Yes New Discharge Prescriptions: New HYDROcodone/APAP 7.5-325MG [[place] 7.5-325] 1 - 2 tab PO Q6H PRN #32 tab PRN Reason: Pain Aspirin 325 mg PO BID #60 tab Sennosides [Senokot] 2 tab PO DAILY PRN #60 tablet PRN Reason: Constipation Continue Albuterol Sulfate [Ventolin HFA] 1 - 2 puff INHALATION Q6H PRN PRN Reason: Wheezing Metoprolol Succinate (ER) [Toprol XL] 25 mg PO DAILY Gabapentin [Neurontin] 400 mg PO TID Losartan-Hctz 50-12.5 mg [Hyzaar 50-12.5] 1 tab PO DAILY Ubidecarenone [Co Q-10] 400 mg PO DAILY Zinc Gluconate [Zinc] 200 mg PO DAILY PRN PRN Reason: Cold Symptoms Fluticasone/Umeclidin/Vilanter [Trelegy Ellipta 100-62.5-25] 1 inhalation INHALATION DAILY Ascorbic Acid [Vitamin C] 1,000 mg PO DAILY Atorvastatin [Lipitor] 80 mg PO DAILY No Action Amoxicillin/Potassium Clav [Amox-Clav 875-125 mg Tablet] 1 tab PO BID Aspirin [Adult Low Dose Aspirin EC] 81 mg PO DAILY Discharge Medication List Albuterol Sulfate [Ventolin HFA] 1 - 2 puff INHALATION Q6H PRN 07/31/22 [History] Aspirin [Adult Low Dose Aspirin EC] 81 mg PO DAILY 07/31/22 [History] Gabapentin [Neurontin] 400 mg PO TID 07/31/22 [History] Metoprolol Succinate (ER) [Toprol XL] 25 mg PO DAILY 07/31/22 [History] Losartan-Hctz 50-12.5 mg [Hyzaar 50-12.5] 1 tab PO DAILY 02/23/23 [History] Amoxicillin/Potassium Clav [Amox-Clav 875-125 mg Tablet] 1 tab PO BID 05/27/24 [History] Ascorbic Acid [Vitamin C] 1,000 mg PO DAILY 05/27/24 [History] Atorvastatin [Lipitor] 80 mg PO DAILY 05/27/24 [History] Fluticasone/Umeclidin/Vilanter [Trelegy Ellipta 100-62.5-25] 1 inhalation INHALATION DAILY 05/27/24 [History] Ubidecarenone [Co Q-10] 400 mg PO DAILY 05/27/24 [History] Zinc Gluconate [Zinc] 200 mg PO DAILY PRN 05/27/24 [History] Aspirin 325 mg PO BID #60 tab 06/03/24 [Rx] HYDROcodone/APAP 7.5-325MG [[place] 7.5-325] 1 - 2 tab PO Q6H PRN #32 tab 06/03/24 [Rx] Sennosides [Senokot] 2 tab PO DAILY PRN #60 tablet 06/03/24 [Rx] Follow up Appointment(s)/Referral(s): [facility] [NON-STAFF] - As Needed (walker) Mateusz Ying MD [STAFF PHYSICIAN] - 06/18/24 2:30 pm (Appt with Dr. Richards) [facility] [NON-STAFF] - As Needed Rafa Soto DO [Doctor of Osteopathic Medicine] - 06/12/24 9:00 am (with Noreen REN) Ambulatory/Diagnostic Orders: Walker w/ Wheels [DME.AMB1] Time Frame: 3 Months, Location: None Selected Activity/Diet/Wound Care/Special Instructions: Weightbearing as tolerated with walker. Leave dressing intact. Dressing may be removed by home care nurse or by patient in 7 days. Then change dressing twice daily until follow up. May shower with initial dressing intact and after removal. If dressing become saturated, please remove. Please take aspirin 325mg twice daily for 30 days to prevent blood clots. Recommend use of compression stockings daily until follow up to help prevent swelling and blood clots. May remove at night before sleeping. [facility] with [facility] and call with any questions or concerns, . Discharge Disposition: HOME WITH HOME HEALTH SERVICES
--- NOTE | 2024-06-04 12:06 | P.PN ---
Subjective Progress Note Date: 06/04/24 Hospital Course: Patient is a pleasant 54-year-old male with a past medical history of CAD status post stenting and AICD placement, systolic heart failure, hypertension, hyperlipidemia, COPD and avascular necrosis. Patient currently admitted under orthopedic surgery team status post left total hip arthroplasty. Surgical procedure was completed by Dr. Soto secondary to avascular necrosis of left hip with femoral head collapse. We were consulted for medical management throughout hospitalization. Physical exam: Patient seen and fully evaluated at bedside this morning. He is postoperative day 1 and appears to be doing well. Patient sitting up in chair and reports pain is managed. He denies having any postoperative nausea or vomiting, denies difficulties with urination, and denies any other complaints at this time. Vital signs reviewed and stable. General: Nontoxic, no distress and appears stated age. Derm: Skin warm and dry, normal coloration for ethnicity. Head: Atraumatic, normocephalic and symmetric. Eyes: EOM's intact, no lid lag, and anicteric sclera Mouth: no lip lesions, mucus membranes moist Cardiovascular: regular rate and rhythm with normal S1S2, no murmur, positive posterior tibial pulses bilaterally, and cap refill < 2 seconds. Lungs: Respirations even, regular, and unlabored on room air. Lungs CTA bilaterally, no rhonchi, no rales, no wheezing, and no accessory muscle usage. Abdominal: soft, nontender to palpation, no guarding, no appreciable organomegaly Ext: ROM intact. No gross muscle atrophy, no edema, no contractures Neuro: Speech clear, face symmetrical and CN II-XII grossly intact with no noted focal neuro deficits Psych: Alert and oriented to person, place, time, and situation. Appropriate and pleasant affect. Assessment and Plan of Care: Avascular necrosis of left hip with femoral head collapse Status post left total hip arthroplasty -Management per primary admitting orthopedic surgery team including DVT prophylaxis, pain management, wound/dressing management, weightbearing, and PT/OT. -Patient currently on DVT prophylaxis with aspirin 325 mg twice daily along with RJ hose and SCDs.. -Continue gabapentin 400 mg 3 times daily. History of CAD status post stenting Chronic Systolic heart failure, not in acute exacerbation History of AICD placement Hypertension Hyperlipidemia -Order placed for telemetry monitoring throughout postoperative period. -Continue daily medication regimen with atorvastatin 80 mg daily, losartanhydrochlorothiazide 50-12.5 mg daily, and metoprolol succinate 25 mg daily. COPD, not in acute exacerbation -Continue Trelegy Ellipta 1 puff daily. -In substitute of home Ventolin inhaler, patient placed on DuoNebs 3 times daily and as needed for wheezing/shortness of breath. -Encourage use of incentive spirometry 10-15 times hourly while awake. Data reviewed: -Vital signs reviewed. Blood pressure 120/73, heart rate 86, respiratory rate 16, temp 98.0 F, and SpO2 of 95% on room air. -Postoperative labs reviewed. CBC showing leukocytosis with WBC count of 21.87 and acute blood loss anemia with hemoglobin of 11.9. BMP unremarkable. Blood glucose 148. Thank you for allowing us to participate in the care of this pleasant patient. Do not hesitate to contact us with questions. Someone can be reached from the [facility] hospitalist group all hours of the day at [phone] or via [email or web address]. Patient was seen independently by Nurse Practitioner. This document was prepared using [employer] dictation software. Please allow for errors in repairer evaporator while rare they do occur. Lior Ruelas NP rendered care for this patient independently, reviewed the f indings and plan as documented in the note above and agree with plan. I did not physically speak with or examine the patient on this date. Objective - Vital Signs Vital signs: Vital Signs Temp 98 F 06/04/24 07:10 Pulse 89 06/04/24 07:10 Resp 15 06/04/24 07:10 BP 137/79 06/04/24 07:10 Pulse Ox 97 06/04/24 07:10 FiO2 Intake & Output 06/03/24 06/04/24 06/04/24 18:59 06:59 18:59 Intake Total 551 Output Total 900 500 Balance -349 -500 Weight 106.1 kg Intake: IV 551 Output: Urine 400 500 Estimated Blood Loss 500 Other: Voiding Method Urinal Urinal # Voids 3 - Labs CBC & Chem 7: 06/04/24 03:11 06/04/24 03:11
[2024-06-04] MEDS ORDERED: GABAPENTIN 400 MG CAP PO SCH (17:00)
== END 2024-06-04 11:18 | disposition home health service (06) ==
LOC: OR 05:34 → 4SSUR 08:30 → OR 06-04 11:18
PROVIDERS: ATTEND Orthopaedic Surgery
DX: M87.052 Idiopathic aseptic necrosis of left femur (principal); Z91.010 Allergy to peanuts; Z91.013 Allergy to seafood; Z79.82 Long term (current) use of aspirin; Z79.899 Other long term (current) drug therapy
CPT/HCPCS: 27130; 97161; 97166; 64999; 80048; 83735; 85025; 73501; C1776; J2250; J1100; J0690 ×2; J2405; J2003; J3010; J2795; J2704